=== PATIENT | male | born 2000 | race Caucasian/White ===

== ENCOUNTER → 2019-01-13 10:00 | Outpatient (CLI) | payer BC, SELFPAY | PROVIDERS: PCP Nurse Practitioner Family; Visit Provider Nurse Practitioner Family | DX: Z82.79 Family history of other congenital malformations, deformations and chromosomal abnormalities (principal) | CPT/HCPCS: 93306 ==

== ENCOUNTER 2020-08-11 11:07 | Day surgery (SDC) | payer BC, SELFPAY ==
[2020-08-11] VITALS (10 sets, daily range): BP systolic 145–162; BP diastolic 69–91; PULSE 68–98; RESP 16–20; TEMP 36.2–36.8; O2SAT 93–100; BMI 31.6
--- NOTE | 2020-08-11 11:29 | HMH.EDABDPAI ---
ED Disposition Clinical Impression: Acute appendicitis Qualifiers: Acute appendicitis type: unspecified acute appendicitis type Qualified Code(s): K35.80 - Unspecified acute appendicitis Disposition: Still a Patient Condition on Discharge: Undetermined Instructions: DI for Acute Abdomen Referrals: Yris Gordon APRN [Primary Care Provider] - - Critical Care Critical Care Time: No Attestation: On , the high probability of a clinically significant, sudden or life threatening deterioration of the following system(s) required my full and direct attention, intervention and personal management. The time I documented below is in addition to time spent performing reported procedures but includes the following listed in this critical care notation. Medical Decision Making - Medical Records Medical records reviewed: Yes: I reviewed the patient's medical records. - Ed Inquiry Pt receiving controlled substance: No Vital Signs: 08/11/20 11:08 Temperature 98.0 F Temperature Source Oral Pulse Rate [Left Radial] 98 H Respiratory Rate 19 Blood Pressure [Right Arm] 151/91 H Blood Pressure Mean [Right Arm] 111 Blood Pressure Source [Right Arm] Automatic Cuff Blood Pressure Position [Right Arm] Sitting 02 Sat by Pulse Oximetry 100 Oxygen Delivery Method Room Air - Lab Data Lab Results 08/11/20 11:28: Urine Color Yellow, Urine Appearance Clear, Urine pH 6.0, Ur Specific [place] 1.015, Urine Protein Negative, Urine Glucose (UA) Negative, Urine Ketones Negative, Urine Blood Negative, Urine Nitrate Negative, Urine Bilirubin Negative, Urine Urobilinogen 0.2, Ur Leukocyte Esterase Negative, Urine RBC Occasional, Urine WBC None, Ur Squamous Epith Cells Occasional, Urine Bacteria None 08/11/20 11:28: WBC 12.1 H, RBC 6.29 H, Hgb 17.3, Hct 49.8, MCV 79.3 L, MCH 27.5, MCHC 34.7, RDW 13.9, Plt Count 331, MPV 7.4, Neut % (Auto) 69.0, Lymph % (Auto) 22.2, [place] % (Auto) 6.2, Eos % (Auto) 2.2, Baso % (Auto) 0.5, Neut # (Auto) 8.4 H, Lymph # (Auto) 2.7, [place] # (Auto) 0.8, Eos # (Auto) 0.3, Baso # (Auto) 0.1 08/11/20 11:28: Sodium 141, Potassium 4.1, Chloride 103, Carbon Dioxide 27, Anion Gap 15.1 H, BUN 14, Creatinine 0.80, Estimated Creat Clear 225, Estimated GFR 122, Est GFR ( Amer) 148, Glucose 113 H, Calcium 10.1, Total Bilirubin 0.6, AST 43, ALT 52, Alkaline Phosphatase 101, Total Protein 9.1 H, Albumin 5.2 H, Globulin 3.9 H, Albumin/Globulin Ratio 1.3, Amylase 66, Lipase 67 Result diagrams: 08/11/20 11:28 08/11/20 11:28 Orders (Tests/Meds): ED MEDICATIONS Discontinued Medications Generic Name Dose Route Start Last Admin Trade Name Freq PRN Reason Stop Dose Admin Sodium Chloride 1,000 mls @ 999 mls/hr 08/11/20 11:30 08/11/20 11:45 Sod Chlor 0.9% 1000ml Bag IV 08/11/20 12:30 999 mls/hr .Q1H1M RACHEL Administration Iopamidol 75 ml 08/11/20 12:19 08/11/20 12:22 Iopamidol-370 (76%);100ml Bottle IV 08/11/20 12:20 75 ml ONCE ONE Administration Ketorolac Tromethamine 15 mg 08/11/20 11:22 08/11/20 11:45 Ketorolac 30mg/Ml Vial IV 08/11/20 11:23 15 mg ONCE ONE Administration Morphine Sulfate 2 mg 08/11/20 13:22 08/11/20 13:30 Morphine 2mg/Ml Syringe IV 08/11/20 13:23 2 mg ONCE ONE Administration Ondansetron HCl 4 mg 08/11/20 11:22 08/11/20 11:45 Ondansetron 4mg/2ml Vial IV 08/11/20 11:23 4 mg ONCE ONE Administration Sodium Chloride 10 ml 08/11/20 12:22 08/11/20 12:22 Sodium Chloride 0.9% 10ml Syr (Rad Only) IV 08/11/20 12:23 10 ml ONCE ONE Administration ORDERS Category Date Time Status Covid-19 IgG/IgM ([facility]) Stat Lab 08/11/20 13:46 Ordered - CT Data CT Scan: Abdomen Time Received: 12:[address] Reviewed: Yes: I have reviewed the patient's CT results, I have viewed the radiologist's interpretation Preliminary Findings: Abnormal Findings Narrative: 8 mm appendix that is distended with no periappendiceal inflammation or fat stranding. Medi
[2020-08-11 11:36] LABS: Microscopic, Urine URINE MICROSCOPIC (MICROSCOPIC)
[2020-08-11 11:38] LABS: Appearance,Urine CLEAR (Clear); Bilirubin,Urine Negative (Negative); Blood, Urine Negative (Negative); Color,Urine YELLOW (Yellow); Glucose,Urine (UA) Negative (Negative); Ketones,Urine Negative (Negative); Leukocyte Esterase,Urine Negative (Negative); Nitrate,Urine Negative (Negative); Protein,Urine Negative (Negative); Specific Gravity, Urine 1.015 (1.005-1.030); Urobilinogen,Urine 0.2 EU/dl (0.2)
[2020-08-11 11:40] LABS: Basophils # 0.1 K/mm3 (0-0.2); Basophils % 0.5 % (0.1-2.0); Eosinophils # 0.3 K/mm3 (0.0-0.4); Eosinophils % 2.2 % (0.1-12.0); Hematocrit 49.8 % (42.0-52.0); Hemoglobin 17.3 g/dL (14.1-18.0); Lymphocytes # 2.7 K/mm3 (0.7-4.5); Lymphocytes % 22.2 % (10-50); Mean Corpuscular HGB Conc 34.7 g/dL (31.8-35.4); Mean Corpuscular Hemoglobin 27.5 pg (27.0-31.2); Mean Corpuscular Volume 79.3 fl (80-94); Mean Platelet Volume 7.4 fl (7.4-10.4); Monocytes # 0.8 K/mm3 (0.1-1.0); Monocytes % 6.2 % (1.7-9.3); Neutrophils # 8.4 K/mm3 (1.8-7.8); Platelet Count 331 K/mm3 (142-424); Red Blood Count 6.29 M/mm3 (4.60-6.20); Red Cell Distribution Width 13.9 % (11.5-17.5); White Blood Count 12.1 K/mm3 (4.8-10.8)
--- NOTE | 2020-08-11 11:42 | CT_ITS ---
PROCEDURE: CT ABDOMEN PELVIS W CON CLINICAL INDICATION: RUQ and LUQ abdominal pain. COMPARISON: No exams were available for comparison TECHNIQUE: IV Contrast: 75ML Isovue 370 Oral Contrast None Axial images obtained with sagittal and coronal reformats. All CT scans at the facility use one or more dose reduction, viz: automated exposure control, ma/kV adjustment per patient size (including targeted exams where dose is matched to indication, i.e. head), or iterative reconstruction technique. FINDINGS: LOWER THORAX: No acute finding ABDOMEN & PELVIS: A 4 mm hypodensity is present in the hepatic dome image 14 series 3 nonspecific too small to categorize. The liver is otherwise unremarkable. The gallbladder has an unremarkable CT appearance. The spleen, adrenal glands, and pancreas have an unremarkable appearance. No renal or ureteral calculi. There is minimal prominence of the right ureter. The right kidney has a slightly edematous appearance. Recently passed stone or urinary tract infection is considered. No definite ureteral calculi are apparent. The bowel gas pattern is nonspecific. No intestinal obstruction or free air. The appendix is slightly prominent measuring 8 mm in diameter. No stranding of the periappendiceal fat. No periappendiceal fluid collection. No pelvic mass or abnormal fluid collection. There are scattered small sclerotic foci in the left femoral head and neck which may be due to bone islands. IMPRESSION: 1. Minimal prominence of the right renal collecting system with minimal edematous appearance of the right kidney. Urinary tract infection or recently passed stone is a consideration. No definite ureteral calculi are apparent. 2. The appendix is somewhat prominent measuring 8 mm without obvious stranding of the periappendiceal fat or periappendiceal fluid collection. This is of questionable clinical significance. Consider follow-up with oral contrast if symptoms warrant. Dictated by: Jose L Rodriguez MD 08/11/2020 12:42 Jose L Rodriguez MD in [place] 08/11/2020 12:42
[2020-08-11 11:44] LABS: Chloride 103 mmol/L (98-107); RBC,Urine Occasional #/hpf (0-3); Sodium 141 mmol/L (136-145); Squamous Epithelial Cell,Urine Occasional #/hpf (0-5)
[2020-08-11 11:45] LABS: Potassium 4.1 mmoL/L (3.5-5.1)
[2020-08-11 11:46] LABS: Amylase 66 U/L (30-110); Blood Urea Nitrogen 14 mg/dl (9-20); Creatinine Clearance Estimated 225 mL/min (50-200); Estimated Glomerular Filt Rate 122 ml/min (>60); GFR (African American) 148 ML/MIN (>60)
[2020-08-11 11:47] LABS: Alanine Aminotransferase 52 U/L (12-78); Albumin Level 5.2 g/dl (3.5-5.0); Albumin/Globulin Ratio 1.3 (1.1-1.8); Alkaline Phosphatase 101 U/L (38-126); Anion Gap 15.1 mEq/L (5-15); Aspartate Amino Transferase 43 U/L (17-59); Bilirubin,Total 0.6 mg/dl (0.2-1.3); Calcium 10.1 mg/dl (8.4-10.2); Carbon Dioxide 27 mmol/L (22.0-30.0); Globulin 3.9 g/dL (1.3-3.2); Glucose 113 mg/dl (74-100); Lipase 67 U/L (23-300); Total Protein,Serum 9.1 g/dl (6.3-8.2)
--- NOTE | 2020-08-11 13:17 | PC.NURSE ---
Dr Martin speaking with Dr Cruz.
--- NOTE | 2020-08-11 13:47 | PC.NURSE ---
pt to surgery
--- NOTE | 2020-08-11 13:51 | PC.NURSE ---
Pt placed in w, ERIC stack, surgery staff received preop checklist given. Staff states that is all they need at this time. IF pt is to be admitted, will do that after the surgery
[2020-08-11 14:18] LABS: Coronavirus 19 IgG Antibody Negative (Negative); Coronavirus 19 IgM Antibody Negative (Negative)
--- NOTE | 2020-08-11 17:11 | HMH.OPNOTE ---
Date of procedure: 08/11/20 Pre-op Diagnosis:: Appendicitis Post-op Diagnosis:: Same Procedure performed:: Laparoscopic appendectomy Surgeon:: Alexis Cruz MD FIELD SUPPORT REPRESENTATIVE:: Fausto Morocho Anesthesia: GETKelly Estimated blood loss (mL): 10 Operative findings:: Inflamed/enlarged appendix with minimal suppurative changes distally Operative note:: After informed consent was obtained the patient was taken to the operating room and placed in the supine position. General anesthesia was induced and his abdomen was prepped and draped in a sterile fashion. After infiltration with local anesthetic a supraumbilical incision was made. A Veress needle was placed in position. The abdomen was insufflated. A 12 mm optical trocar was placed in position. Under direct visualization a 5 mm trocar was placed in the suprapubic position and an additional 5 mm trochars placed in the left lower quadrant. Evaluation in the right lower quadrant revealed no obvious abscess cavities or severe generalized inflammatory changes. The appendix was carefully elevated. The appendix was very inflamed and enlarged. The distal appendix had focal suppurative changes. No sign of perforation noted. The mesoappendix was taken down with harmonic arelis. An Endopath 45 stapling device was then used to transect the appendix at its base. The appendix was placed in a retrieval bag and removed through the supraumbilical trocar site. The right lower quadrant was thoroughly irrigated. No active bleeding or sign of injury was noted. The staple margin appeared to be intact at the stump. Pneumoperitoneum was released. Fascia at the supraumbilical trocar site was reapproximated with 0 Ethibond. All wounds were irrigated and skin was reapproximated with 4-0 Monocryl. Sterile dressings were applied and the patient was transferred to recovery in stable condition after extubation. Condition: stable Disposition: PACU Specimens:: Appendix Complications:: No immediate
--- NOTE | 2020-08-11 17:24 | HMH.ANESCL ---
[facility] Anesthesia Checklist - Patient Identification Patient Identification: Arm Band, Verbal (Name & ) - Structural Data Admitted From: Emergency Dept Planned Operative Procedure/s: lap appy Consent for Planned Operative Procedure(s) Verified: Yes Verified Documents: History and Physical - NPO Status Verified Time NPO: 05:00 - Chart Verification Results Verified: CBC, BMP - Additional verifications Patient : No Anesthesia Reactions: No Hx Blood Transfusions: No Blood Transfusion Reaction: No Cephalosporin Allergy: No Previous Colonoscopy: No - Cardiovascular Assessment Heart Sounds: S1 & S2 Pulse Strength: Baseline Pulse Rhythm: Regular Peripheral Edema: No - Airway Assessment C-Spine Mobility Assessed: Yes TMJ Mobility Assessed: Yes Dentition: Good Dentition - Neurological Assessment Level of Consciousness: Awake, Alert, Appropriate Hx Seizures: No Numbness or tingling in extremities: No - Anesthesia Plan Anesthesia Risk discussed: Yes Anesthesia Plan: Verified ASA Class: I Anesthesia Type: General [facility] History I have reviewed the patient's past medical history: Yes Medical History: Reports:: Asthma *Have you ever received a pneumonia vaccine?: No *Have you received a flu vaccine this season?: No Anesthesia experience/problems:: none Other Surgeries: Yes: No Previous Surgery Amputation: No Fractures: Yes - *Social History Smoking Status: Never smoker Alcohol Intake: never Substance Use Type: denies use *Occupational Status:: employed Housing: house Household Members: family *Travel in the last 8 weeks: None Family Hx:: Diabetes
--- NOTE | 2020-08-11 17:27 | HMH.ANESI ---
[facility] Anesthesia Record Part I Intake, IV Amount: 800 Estimated blood loss (mL): 10 Urine output (mL): 150 Blood Products used (#): none Blood Pressure: 155/87 SaO2: 93 Pulse Rate: 68 Respiratory Rate: 18 Temperature: 97.2 F Patient is:: Drowsy, Nasal O2, Stable Stable to PACU at:: 17:25
--- NOTE | 2020-08-11 17:33 | SUR.OPER ---
18 F/C PLACED INTRAOPERATIVE. Clear, Yellow urine noted. 150 cc noted at the end of procedure. f/c dc'd. urine specimen sent to lab.
[2020-08-11 17:49] LABS: Microscopic,Cath URINE MICROSCOPIC (MICROSCOPIC)
--- NOTE | 2020-08-11 18:35 | PC.NURSE ---
1755-report given to José Luis,RN at bedside, vss, family at bedside, pt stable
[2020-08-11 19:39] LABS: Appearance,Urine/Cath CLEAR (Clear); Bilirubin,Cath Negative (Negative); Blood, Urine/Cath Negative (Negative); Color,Urine/Cath YELLOW (Yellow); Glucose,Urine/Cath (UA) Negative (Negative); Ketones,Urine/Cath TRACE (Negative); Leukocyte Esterase,Cath Negative (Negative); Nitrate,Cath Negative (Negative); Protein,Urine/Cath Negative (Negative); Specific Gravity, Urine/Cath 1.025 (1.005-1.030); Urobilinogen,Cath 0.2 EU/dl (0.2)
[2020-08-11 20:16] LABS: Bacteria,Urine/Cath TRACE /lpf
--- NOTE | 2020-08-12 07:02 | P.PN_ITS ---
[facility] Anesthesia Record Part II Discharge Time: 17:35 Destination: Surgical Day Care (OP Surgery) PACU nurse assessment reviewed?: Yes Patient Condition:: Good Anesthesia Complications:: None Swallowing reflex intact?: Yes Cyanosis?: No Blood Pressure: 160/72 Pulse Rate: 84 Temperature: 97.6 F Mental Status: Alert & Oriented Pain level:: 4 Nausea and/or vomitting:: None Intake, IV Amount: 25
[2020-08-12 07:03] VITALS: BP 160/72; PULSE 84; TEMP 36.4
== END 2020-08-11 18:36 | disposition home or self-care (01) ==
LOC: ER 11:35 → SDC 13:49
PROVIDERS: Emergency Provider Student in an Organized Health Care Education/Training Program; PCP Nurse Practitioner Family; Visit Provider Surgery
PROC: 0DTJ4ZZ Resection of Appendix, Percutaneous Endoscopic Approach (ICD-10-PCS; CPT 44970; principal; 2020-08-11 14:15)
DX: K35.80 Unspecified acute appendicitis (principal); J45.909 Unspecified asthma, uncomplicated
CPT/HCPCS: 44970; 74177; 80053; 81001; 82150; 83690; 85025; 86328; 96365; 96374; 96375; 99284; J2405; J2710; Q9967

== ENCOUNTER → 2021-08-08 17:13 | Outpatient (CLI) | payer BC, SELFPAY | PROVIDERS: PCP Nurse Practitioner Family; Visit Provider Nurse Practitioner | DX: Z20.822 Contact with and (suspected) exposure to COVID-19 (principal); U07.1 COVID-19 | CPT/HCPCS: C9803; U0003; U0005 ==

== ENCOUNTER 2021-08-11 23:37 | Emergency (ER) | payer BC, SELFPAY ==
[2021-08-11 23:41] VITALS: BP 138/86; PULSE 122; RESP 18; TEMP 37.4; O2SAT 98; BMI 33.9
--- NOTE | 2021-08-11 23:58 | XR_ITS ---
PROCEDURE INFORMATION: Exam: XR Chest Exam date and time: 08/11/2021 11:58 PM Age: 21 years old Clinical indication: Shortness of breath and other: Dyspnea; Additional info: Dyspnea covid 19 TECHNIQUE: Imaging protocol: XR of the chest. Views: 1 view. COMPARISON: CT ABDOMEN PELVIS W CON 08/11/2020 12:12 PM FINDINGS: Lungs: Patchy airspace opacity in the right mid-lung/suprahilar region compatible with pneumonia. Pleural spaces: No pleural effusion. No pneumothorax. Heart/Mediastinum: Normal heart size. Bones/joints: Unremarkable. IMPRESSION: Pneumonia in the right mid -lung/suprahilar region.
--- NOTE | 2021-08-12 00:06 | HMH.EDGENADL ---
ED Disposition Clinical Impression: Pneumonia due to COVID-19 virus Pneumonia Qualifiers: Pneumonia type: due to unspecified organism Laterality: right Lung location: upper lobe of lung Qualified Code(s): J18.9 - Pneumonia, unspecified organism Disposition: Home, Self-Care Condition on Discharge: Good Instructions: Pneumonia-Adult Additional Instructions: Finish the entire course of antibiotics and return to the ER for any new or worsening symptoms. Continue to treat your fevers with Tylenol and ibuprofen and monitor your oxygen saturation if is persistently below 91% return to the emergency department for further evaluation. Prescriptions: Amoxicillin [Amoxicillin 875MG Tab] 875 mg PO Q12H #14 tab [facility] Azithromycin [Z-Piero 250mg Tab*] 250 mg PO UD DOSE PK #6 tab [facility] Referrals: Yris Gordon APRN [Primary Care Provider] - Time of Disposition: 02:10 - Critical Care Critical Care Time: No Attestation: On , the high probability of a clinically significant, sudden or life threatening deterioration of the following system(s) required my full and direct attention, intervention and personal management. The time I documented below is in addition to time spent performing reported procedures but includes the following listed in this critical care notation. Medical Decision Making - Medical Records Medical records reviewed: Yes: I reviewed the patient's medical records. - Ed Inquiry Pt receiving controlled substance: No Vital Signs: 08/11/21 23:41 08/12/21 00:30 Temperature 99.3 F Temperature Source Oral Pulse Rate 106 H Pulse Rate [Right] 122 H Respiratory Rate 18 Blood Pressure 130/82 Blood Pressure [Right Arm] 138/86 Blood Pressure Mean [Right Arm] 103 02 Sat by Pulse Oximetry 98 98 Oxygen Delivery Method Room Air - Lab Data Lab Results 08/12/21 00:11: WBC 4.2 L, RBC 5.82, Hgb 15.9, Hct 47.0, MCV 80.8, MCH 27.3, MCHC 33.9, RDW 13.9, Plt Count 149, MPV 8.1, Neut % (Auto) 76.9, Lymph % (Auto) 17.6, [place] % (Auto) 3.8, Eos % (Auto) 0.6, Baso % (Auto) 1.0, Neut # (Auto) 3.2, Lymph # (Auto) 0.7, [place] # (Auto) 0.2, Eos # (Auto) 0.0, Baso # (Auto) 0.0 08/12/21 00:11: Sodium 139, Potassium 3.8, Chloride 99, Carbon Dioxide 33 H, Anion Gap 10.8, BUN 6 L, Creatinine 0.80, Estimated Creat Clear 232, Estimated GFR 121, Est GFR ( Amer) 146, Glucose 107 H, Calcium 8.8, Total Bilirubin 0.3, AST 61 H, ALT 73, Alkaline Phosphatase 71, Total Protein 7.9, Albumin 4.7, Globulin 3.2, Albumin/Globulin Ratio 1.5 08/12/21 00:11: D-Dimer 0.68 H Result diagrams: 08/12/21 00:11 08/12/21 00:11 Orders (Tests/Meds): ED MEDICATIONS Generic Name Dose Route Start Last Admin Trade Name Freq PRN Reason Stop Dose Admin Sodium Chloride 1,000 mls @ 999 mls/hr 08/11/21 23:45 08/12/21 00:05 Sod Chlor 0.9% 1000ml Bag IV 08/12/21 00:45 999 mls/hr .Q1H1M RACHEL Administration Discontinued Medications Generic Name Dose Route Start Last Admin Trade Name Freq PRN Reason Stop Dose Admin Iopamidol 70 ml 08/12/21 01:28 08/12/21 01:29 Iopamidol-370 (76%);100ml Bottle IV 08/12/21 01:29 70 ml ONCE ONE Administration Sodium Chloride 40 ml 08/12/21 01:28 08/12/21 01:29 0.9 % Sodium Chloride 50 Ml Vial IV 08/12/21 01:29 40 ml ONCE ONE Administration Sodium Chloride 10 ml 08/12/21 01:28 08/12/21 01:29 Sodium Chloride 0.9% 10ml Syr (Rad Only) IV 08/12/21 01:29 10 ml ONCE ONE Administration - Radiology Data #1 Image(s): Chest Image Reviewed: Yes I reviewed the patient's radiology image, Yes I have reviewed radiologist's interpretation Preliminary Findings: Abnormal Right-sided pneumonia. No pneumothorax or other bony acute abnormality. - CT Data CT Scan: Chest Time Received: 01:[address] Reviewed: Yes: I have viewed the radiologist's interpretation Findings Guero
[2021-08-12 00:30] VITALS: BP 130/82; PULSE 106; O2SAT 98
[2021-08-12 00:39] LABS: Eosinophils % 0.6 % (0.1-12.0); Hemoglobin 15.9 g/dL (14.1-18.0); Lymphocytes # 0.7 K/mm3 (0.7-4.5); Lymphocytes % 17.6 % (10-50); Mean Corpuscular HGB Conc 33.9 g/dL (31.8-35.4); Mean Corpuscular Hemoglobin 27.3 pg (27.0-31.2); Mean Corpuscular Volume 80.8 fl (80-94); Mean Platelet Volume 8.1 fl (7.4-10.4); Monocytes # 0.2 K/mm3 (0.1-1.0); Monocytes % 3.8 % (1.7-9.3); Neutrophils # 3.2 K/mm3 (1.8-7.8); Neutrophils % 76.9 % (37.0-80.0); Platelet Count 149 K/mm3 (142-424); Red Blood Count 5.82 M/mm3 (4.60-6.20); Red Cell Distribution Width 13.9 % (11.5-17.5); White Blood Count 4.2 K/mm3 (4.8-10.8)
[2021-08-12 00:40] LABS: Chloride 99 mmol/L (98-107); Potassium 3.8 mmoL/L (3.5-5.1); Sodium 139 mmol/L (136-145)
[2021-08-12 00:42] LABS: Alanine Aminotransferase 73 U/L (12-78); Alkaline Phosphatase 71 U/L (38-126); Aspartate Amino Transferase 61 U/L (17-59); Bilirubin,Total 0.3 mg/dl (0.2-1.3); Blood Urea Nitrogen 6 mg/dl (9-20); Creatinine Clearance Estimated 232 mL/min (50-200); Estimated Glomerular Filt Rate 121 ml/min (>60); GFR (African American) 146 ML/MIN (>60)
[2021-08-12 00:43] LABS: Albumin Level 4.7 g/dl (3.5-5.0); Albumin/Globulin Ratio 1.5 (1.1-1.8); Anion Gap 10.8 mEq/L (5-15); Calcium 8.8 mg/dl (8.4-10.2); Carbon Dioxide 33 mmol/L (22.0-30.0); Globulin 3.2 g/dL (1.3-3.2); Glucose 107 mg/dl (74-100); Total Protein,Serum 7.9 g/dl (6.3-8.2)
[2021-08-12 00:48] LABS: D-Dimer 0.68 ug/mL (0.0-0.5)
[2021-08-12 01:00] VITALS: PULSE 107; O2SAT 99
--- NOTE | 2021-08-12 01:02 | CT_ITS ---
PROCEDURE INFORMATION: Exam: CTA Chest With Contrast Exam date and time: 08/12/2021 1:02 AM Age: 21 years old Clinical indication: Cough and shortness of breath and other: Covid 19 elevated d dimer; Additional info: Pre syncope/ covid/ elevated dimer TECHNIQUE: Imaging protocol: Computed tomographic angiography of the chest with contrast. 3D rendering (Not supervised by radiologist): MIP and/or 3D reconstructed images were created by the technologist. Radiation optimization: All CT scans at this facility use at least one of these dose optimization techniques: automated exposure control; mA and/or kV adjustment per patient size (includes targeted exams where dose is matched to clinical indication); or iterative reconstruction. Contrast material: ISOVUE 370; Contrast volume: 70 ml; Contrast route: INTRAVENOUS (IV); COMPARISON: CR XR CHEST PORTABLE 08/12/2021 12:05 AM FINDINGS: Pulmonary arteries: No large or central pulmonary emboli. There is mild heterogeneity of the subsegmental pulmonary arteries, probably artifactual, without convincing filling defect. Aorta: No thoracic aortic aneurysm or dissection. There is a congenitally aberrant, double arch branching pattern of the aorta. Lungs: There are numerous nodular airspace opacities throughout both lungs, compatible with multifocal pneumonia. There is confluent airspace consolidation in the anterior segment of the right upper lobe. Pleural spaces: Trace pleural effusions. No pneumothorax. Heart: Normal heart size. Trace pericardial fluid without significant effusion. Mediastinal space: There is residual or rebound thymic tissue noted. Lymph nodes: Prominent bilateral axillary lymph nodes measuring up to 1.4 cm in short axis, nonspecific and probably reactive in nature. Visualized upper abdomen: Hepatic steatosis. Partially imaged spleen measures greater than 15 cm in craniocaudal dimension, consistent with splenomegaly. Bones/joints: Unremarkable. No acute fracture. Soft tissues: Bilateral gynecomastia. IMPRESSION: 1. No evidence of pulmonary embolus. 2. Multifocal pneumonia, compatible with provided history of COVID-19 infection. Confluent airspace consolidation in the anterior segment right upper lobe. 3. Congenital double aortic arch. 4. Hepatic steatosis. Mild splenomegaly.
[2021-08-12 02:17] VITALS: BP 125/78; PULSE 92; RESP 20; TEMP 37.2; O2SAT 96
== END 2021-08-12 02:20 | disposition home or self-care (01) ==
PROVIDERS: Emergency Provider Student in an Organized Health Care Education/Training Program; PCP Nurse Practitioner Family
DX: J18.9 Pneumonia, unspecified organism (principal); J12.82 Pneumonia due to coronavirus disease 2019
CPT/HCPCS: 71045; 71275; 80053; 85025; 85378; 96365; 99282; Q9967

== ENCOUNTER 2021-08-13 21:26 | Emergency (ER) | payer BC, SELFPAY ==
[2021-08-13 21:28] VITALS: BP 124/79; PULSE 124; RESP 24; TEMP 37.7; O2SAT 95; BMI 33.9
[2021-08-13 22:00] VITALS: BP 123/77; PULSE 103; RESP 31; O2SAT 93
--- NOTE | 2021-08-13 22:17 | XR_ITS ---
PROCEDURE INFORMATION: Exam: XR Chest Exam date and time: 08/13/2021 10:17 PM Age: 21 years old Clinical indication: Shortness of breath; Additional info: SOA TECHNIQUE: Imaging protocol: XR of the chest. Views: 1 view. COMPARISON: CR XR CHEST PORTABLE 08/12/2021 12:05 AM FINDINGS: Lungs: Right upper lobe pneumonia, improving from yesterday. Pleural spaces: Unremarkable. No pleural effusion. No pneumothorax. Heart/Mediastinum: Unremarkable. No cardiomegaly. Bones/joints: Unremarkable. IMPRESSION: Right upper lobe pneumonia, improving from yesterday.
--- NOTE | 2021-08-13 22:18 | ECG_ITS ---
APPROVED REPORT Exam: Resting ECG HR:102 bpm ECG Measurements Heart Rate 102 AXES IA 154 P 33 QRSd 98 QRS 17 QT 344 T 19 QTc 448 Conclusion Sinus tachycardia Otherwise normal ECG Electronically signed by : Fausto Chaves MD 08/14/2021 20:15:47
[2021-08-13 22:23] LABS: Basophils % 0.4 % (0.1-2.0); Eosinophils % 0.2 % (0.1-12.0); Hematocrit 45.2 % (42.0-52.0); Hemoglobin 15.8 g/dL (14.1-18.0); Lymphocytes # 0.9 K/mm3 (0.7-4.5); Lymphocytes % 15.8 % (10-50); Mean Corpuscular Hemoglobin 27.5 pg (27.0-31.2); Mean Corpuscular Volume 78.6 fl (80-94); Mean Platelet Volume 8.4 fl (7.4-10.4); Monocytes # 0.2 K/mm3 (0.1-1.0); Monocytes % 2.9 % (1.7-9.3); Neutrophils # 4.6 K/mm3 (1.8-7.8); Neutrophils % 80.7 % (37.0-80.0); Platelet Count 176 K/mm3 (142-424); Red Blood Count 5.75 M/mm3 (4.60-6.20); Red Cell Distribution Width 13.7 % (11.5-17.5); White Blood Count 5.7 K/mm3 (4.8-10.8)
[2021-08-13 22:33] LABS: Alanine Aminotransferase 74 U/L (12-78); Albumin Level 4.4 g/dl (3.5-5.0); Albumin/Globulin Ratio 1.3 (1.1-1.8); Alkaline Phosphatase 61 U/L (38-126); Anion Gap 12.8 mEq/L (5-15); Aspartate Amino Transferase 85 U/L (17-59); Bilirubin,Total 0.5 mg/dl (0.2-1.3); Blood Urea Nitrogen 3 mg/dl (9-20); Calcium 9.5 mg/dl (8.4-10.2); Carbon Dioxide 29 mmol/L (22.0-30.0); Chloride 96 mmol/L (98-107); Creatinine Clearance Estimated 310 mL/min (50-200); Estimated Glomerular Filt Rate 168 ml/min (>60); GFR (African American) 204 ML/MIN (>60); Globulin 3.4 g/dL (1.3-3.2); Glucose 113 mg/dl (74-100); Potassium 3.8 mmoL/L (3.5-5.1); Sodium 134 mmol/L (136-145); Total Protein,Serum 7.8 g/dl (6.3-8.2)
[2021-08-13 22:38] LABS: D-Dimer 0.61 ug/mL (0.0-0.5)
[2021-08-13 22:51] LABS: Troponin I < 0.01 ng/ml (0.00-0.034)
[2021-08-14 01:43] LABS: Troponin I < 0.01 ng/ml (0.00-0.034)
[2021-08-14 02:14] VITALS: BP 127/84; PULSE 103; RESP 16; TEMP 36.6; O2SAT 95
--- NOTE | 2021-08-14 03:41 | HMH.EDGENADL ---
ED Disposition Clinical Impression: COVID-19 Pneumonia Qualifiers: Pneumonia type: due to unspecified organism Laterality: unspecified laterality Lung location: unspecified part of lung Qualified Code(s): J18.9 - Pneumonia, unspecified organism Disposition: Home, Self-Care Condition on Discharge: Good Instructions: DI for COVID-19 (Suspected or Confirmed ) Referrals: Yris Gordon APRN [Primary Care Provider] - - Critical Care Critical Care Time: No Attestation: On 08/13/21, the high probability of a clinically significant, sudden or life threatening deterioration of the following system(s) required my full and direct attention, intervention and personal management. The time I documented below is in addition to time spent performing reported procedures but includes the following listed in this critical care notation. Medical Decision Making - Medical Records Medical records reviewed: Yes: I reviewed the patient's medical records. - Ed Inquiry Pt receiving controlled substance: No Vital Signs: 08/13/21 21:28 08/13/21 22:00 08/14/21 02:14 Temperature 99.9 F H 97.9 F Temperature Source Oral Pulse Rate 103 H 103 H Pulse Rate [Apical] 124 H Respiratory Rate 24 31 H 16 Blood Pressure 123/77 127/84 Blood Pressure [Right Arm] 124/79 Blood Pressure Mean [Right Arm] 94 Blood Pressure Source [Right Arm] Automatic Cuff Blood Pressure Position [Right Arm] Sitting 02 Sat by Pulse Oximetry 95 93 L Oxygen Delivery Method Room Air Room Air Room Air - Lab Data Lab results reviewed: Yes: I reviewed the patient's lab results. Lab Results 08/13/21 21:35: WBC 5.7 D, RBC 5.75, Hgb 15.8, Hct 45.2, MCV 78.6 L, MCH 27.5, MCHC 35.0, RDW 13.7, Plt Count 176, MPV 8.4, Neut % (Auto) 80.7 H, Lymph % (Auto) 15.8, [place] % (Auto) 2.9, Eos % (Auto) 0.2, Baso % (Auto) 0.4, Neut # (Auto) 4.6, Lymph # (Auto) 0.9, [place] # (Auto) 0.2, Eos # (Auto) 0.0, Baso # (Auto) 0.0 08/13/21 21:35: Sodium 134 L, Potassium 3.8, Chloride 96 L, Carbon Dioxide 29, Anion Gap 12.8, BUN 3 L D, Creatinine 0.60 L D, Estimated Creat Clear 310 H, Estimated GFR 168, Est GFR ( Amer) 204 D, Glucose 113 H, Calcium 9.5, Total Bilirubin 0.5, AST 85 H D, ALT 74, Alkaline Phosphatase 61, Troponin I < 0.01, Total Protein 7.8, Albumin 4.4, Globulin 3.4 H, Albumin/Globulin Ratio 1.3 08/13/21 21:35: D-Dimer 0.61 H 08/14/21 01:16: Troponin I < 0.01 Result diagrams: 08/13/21 21:35 08/13/21 21:35 Orders (Tests/Meds): ED MEDICATIONS Discontinued Medications Generic Name Dose Route Start Last Admin Trade Name Freq PRN Reason Stop Dose Admin Belladonna Alkaloids 60 ml 08/13/21 22:18 08/13/21 22:25 Gi Cocktail 60ml Udc PO 08/13/21 22:19 60 ml ONCE ONE Administration Lactated Ringer's 500 mls @ 999 mls/hr 08/13/21 22:30 08/13/21 22:26 Lactated Ringer's 1000 Ml Bag IV 08/13/21 23:00 999 mls/hr .Q31M RACHEL Administration Ketorolac Tromethamine 15 mg 08/13/21 22:18 08/13/21 22:25 Ketorolac 30mg/Ml Vial IV 08/13/21 22:19 15 mg ONCE ONE Administration ORDERS Category Date Time Status ECG Request by /Jacki Stat Y 08/13/21 22:18 Stop Req - Radiology Data #1 Image Reviewed: Yes I reviewed the patient's radiology results, Yes I reviewed the patient's radiology image CXR: FINDINGS: Lungs: Right upper lobe pneumonia, improving from yesterday. Pleural spaces: Unremarkable. No pleural effusion. No pneumothorax. Heart/Mediastinum: Unremarkable. No cardiomegaly. Bones/joints: Unremarkable. IMPRESSION: Right upper lobe pneumonia, improving from yesterday. Medical Decision Narrative: Patient is a 21yo Covid positive male presenting with worsening COVID-19 symptoms including dyspnea, cough and nausea with vomiting. Differential diagnosis includes, but is not limited to, myocarditis, pericarditis, COVID-19 pneumonia, COVID-19 syndrome, pulmonary embolus. On initial evaluation, casimiro
== END 2021-08-14 02:34 | disposition home or self-care (01) ==
PROVIDERS: Emergency Provider Emergency Medicine; PCP Nurse Practitioner Family
DX: J18.9 Pneumonia, unspecified organism (principal)
CPT/HCPCS: 71045; 80053; 84484; 85025; 85378; 93005; 96365; 96375; 99283

== ENCOUNTER → 2021-08-22 09:56 | Outpatient (CLI) | payer BC, SELFPAY ==
--- NOTE | 2021-08-22 10:02 | XR_ITS ---
PROCEDURE: XR CHEST 2V CLINICAL HISTORY: PNEUMONIA DUE TO CORONAVIRUS DISEASE(TESTED POSITIVE ON ) COMPARISON: CT CT ANGIO CHEST PE PROTOCOL from 08/12/2021 CR XR CHEST PORTABLE from 08/12/2021 CR XR CHEST PORTABLE from 08/13/2021 FINDINGS: The cardiomediastinal silhouette and pulmonary vascularity are within normal limits. Previously noted right upper lobe pneumonia has shown improvement. No new areas of consolidation. Lungs are clear. No effusions No acute bony abnormalities. IMPRESSION: Improved right upper lobe pneumonia Dictated by: Jose L Rodriguez MD 08/22/2021 15:39 Jose L Rodriguez MD in [place] 08/22/2021 15:39
== END ==
PROVIDERS: PCP Nurse Practitioner Family; Visit Provider Nurse Practitioner Family
DX: J12.82 Pneumonia due to coronavirus disease 2019 (principal)
CPT/HCPCS: 71046

== ENCOUNTER → 2021-08-28 14:59 | Outpatient (CLI) | payer BC, SELFPAY ==
--- NOTE | 2021-08-28 15:02 | CA_ITS ---
APPROVED REPORT EXAM: Comprehensive 2D, Doppler, and color-flow Echocardiogram Loss Prevention Research Engineer: Yovana Renteria, RCS, RVS Ht: 6 ft 0 in Wt: 262lbs BSA: 2.39 BP: 137/94 mmHg Indications: Double aortic arch, s/p COVID 08/06/21, abn EKG 2D Dimensions Aortic Root 3.05 cm LA Volume 24.60 mL Left Atrium 2.51 cm LA Volume Index 10.30 mL/m2 (M/F) 16-34 LVOT 2.29 cm (M/F) 1.5-2.5 M-Mode Dimensions RVDd 2.85 cm (0.9-2.6) LA Diam 3.05 cm (1.9-4.0) LVDd 5.55 cm (3.5-5.7) Ao Diam 3.51 cm (2.0-3.7) LVDs 3.43 cm (3.5-5.7) IVSd 1.14 cm (0.6-1.1) PWd 1.10 cm (0.6-1.1) EF (Teich) 65.10% EPSs 0.50 cm FS 36.00% EDV (Teich) 138.90 mL ESV (Teich) 48.50 mL LV Diastology E Decel Time 203.00 (160-240 msec) E/A Ratio 1.61 MED E' 11.80 (< 7 cm/sec) MED A' 10.00 cm/s E'/MED E' Ratio 7.42 (>14) LAT E' 11.30 (<10 cm/sec) LAT A' 9.60 cm/s E/LAT E' Ratio 7.75 (>14) Aortic Valve LVOT Max 110.00 (70-110 cm/s) LVOT VTI 19.13 cm AoV Peak Fabio. 150.00 (50-130 cm/s) AO Peak GR. 9.00 mmHg AO Mean GR. 4.50 (<5 mmHg) AO VTI 24.03 (18-25 cm) BOB (VTI) 3.28 (2.5-4.5 cm2) Mitral Valve MV A Velocity 54.00 (40-130 cm/s) E/A Ratio 1.61 MV Decel. Time 203.00 (160-240 ms) Pulmonary Valve PV Peak Velocity 125.00 (50-150 cm/s) WI End VMAX 162.00 cm/s Tricuspid Valve TR P. Velocity 192.00 cm/s RAP Estimate 10.00 mmHg RVSP 24.80 mmHg Left Ventricle Left atrium is normal size, left ventricle is normal size, visually estimated ejection fraction 55% with no regional wall motion abnormality, diastolic parameters are within normal range. Right Ventricle Right atrium and right ventricle are normal size and contractility. Aortic Valve Aortic valve is minimally thickened and fibrosed. There is no aortic stenosis or aortic insufficiency. Mitral Valve Mitral valve grossly normal, there is trace mitral regurgitation. Tricuspid Valve Tricuspid grossly normal, there is trace tricuspid regurgitation, tricuspid regurgitation jet velocity is inadequate for calculation of the right ventricular systolic pressure. Pulmonic Valve Pulmonic valve is poorly visualized. Great Vessels Aortic root is normal size. Inferior vena cava is normal size with normal inspiratory collapse. Pericardium No significant pericardial effusion noted. Conclusion 1. Normal left ventricular size, preserved left ventricular systolic function, visually estimated ejection fraction 55% with no regional wall motion abnormality, diastolic parameters are within normal range. 2. Trace mitral and tricuspid regurgitation. 3. No significant pericardial effusion noted. 4. Inferior vena cava is normal size with normal inspiratory collapse. Electronically signed by : Ba Charles MD 08/28/2021 20:22:27
== END ==
LOC: RT 15:02
PROVIDERS: PCP Nurse Practitioner Family; Visit Provider Physician Assistant
DX: Q25.45 Double aortic arch (principal); R00.0 Tachycardia, unspecified; R94.31 Abnormal electrocardiogram [ECG] [EKG]
CPT/HCPCS: 93306

== ENCOUNTER → 2021-09-25 07:52 | Outpatient (CLI) | payer BC, SELFPAY ==
--- NOTE | 2021-09-25 07:52 | CT_ITS ---
PROCEDURE INFORMATION: Exam: CTA Chest With Contrast Exam date and time: 09/25/2021 7:52 AM Age: 21 years old Clinical indication: Condition or disease; Other: Evaluate double aortic arch; Additional info: To look at the aortic arch TECHNIQUE: Imaging protocol: Computed tomographic angiography of the chest with contrast. 3D rendering (Not supervised by radiologist): MIP and/or 3D reconstructed images were created by the technologist. Radiation optimization: All CT scans at this facility use at least one of these dose optimization techniques: automated exposure control; mA and/or kV adjustment per patient size (includes targeted exams where dose is matched to clinical indication); or iterative reconstruction. Contrast material: ISOVUE 370; Contrast volume: 75 ml; Contrast route: INTRAVENOUS (IV); COMPARISON: CT ANGIO CHEST PE PROTOCOL 08/12/2021 1:17 AM FINDINGS: Pulmonary arteries: The contrast bolus is spread out on both the right and left sides of the heart. There is suboptimal opacification of the pulmonary arteries. The main pulmonary arteries are without filling defects or other evidence of pulmonary embolus. Emboli cannot be excluded in the segmental arteries. Aorta: Again noted is the vascular ring. No aortic aneurysm or dissection. Lungs: Unremarkable. No consolidation. No masses. Pleural spaces: Unremarkable. No pneumothorax. No pleural effusion. Heart: Unremarkable. No cardiomegaly. No pericardial effusion. Lymph nodes: Unremarkable. No enlarged lymph nodes. Bones/joints: Unremarkable. No acute fracture. Soft tissues: Unremarkable. IMPRESSION: 1. Suboptimal exam of the pulmonary arteries with no obvious emboli. 2. No other acute changes in the chest. 3. Vascular ring.
== END ==
PROVIDERS: PCP Nurse Practitioner Family; Visit Provider Physician Assistant
DX: Q25.45 Double aortic arch (principal); R00.0 Tachycardia, unspecified; R94.31 Abnormal electrocardiogram [ECG] [EKG]
CPT/HCPCS: 71275; Q9967

== ENCOUNTER → 2021-11-17 11:43 | Outpatient (CLI) | payer BC, SELFPAY ==
[2021-11-17 12:32] LABS: Basophils # 0.1 K/mm3 (0-0.2); Basophils % 0.8 % (0.1-2.0); Eosinophils # 0.1 K/mm3 (0.0-0.4); Eosinophils % 1.5 % (0.1-12.0); Hematocrit 46.5 % (42.0-52.0); Hemoglobin 15.7 g/dL (14.1-18.0); Lymphocytes % 27.3 % (10-50); Mean Corpuscular HGB Conc 33.7 g/dL (31.8-35.4); Mean Corpuscular Hemoglobin 27.3 pg (27.0-31.2); Mean Corpuscular Volume 80.8 fl (80-94); Mean Platelet Volume 7.4 fl (7.4-10.4); Monocytes # 0.4 K/mm3 (0.1-1.0); Monocytes % 5.1 % (1.7-9.3); Neutrophils # 4.8 K/mm3 (1.8-7.8); Neutrophils % 65.3 % (37.0-80.0); Platelet Count 299 K/mm3 (142-424); Red Blood Count 5.76 M/mm3 (4.60-6.20); Red Cell Distribution Width 13.6 % (11.5-17.5); White Blood Count 7.4 K/mm3 (4.8-10.8)
[2021-11-17 12:54] LABS: D-Dimer 0.34 ug/mL (0.0-0.5)
[2021-11-23 04:53] LABS: D001-IgE D pteronyssinus <0.10 kU/L (Class 0); D002-IgE D farinae <0.10 kU/L (Class 0); E001-IgE Cat Dander <0.10 kU/L (Class 0); E005-IgE Dog Dander <0.10 kU/L (Class 0); E072-IgE Mouse Urine <0.10 kU/L (Class 0); G002-IgE Bermuda Grass <0.10 kU/L (Class 0); G006-IgE Timothy Grass <0.10 kU/L (Class 0); I006-IgE Cockroach, German 0.32 kU/L (Class I); Immunoglobulin E, Total 45 IU/mL (6-495); M001-IgE Penicillium chrysogen <0.10 kU/L (Class 0); M002-IgE Cladosporium herbarum <0.10 kU/L (Class 0); M003-IgE Aspergillus fumigatus <0.10 kU/L (Class 0); M006-IgE Alternaria alternata <0.10 kU/L (Class 0); T001-IgE Maple/Box Elder <0.10 kU/L (Class 0); T003-IgE Common Silver Birch <0.10 kU/L (Class 0); T006-IgE Cedar, Mountain <0.10 kU/L (Class 0); T007-IgE Oak, White <0.10 kU/L (Class 0); T008-IgE Elm, American <0.10 kU/L (Class 0); T010-IgE Walnut <0.10 kU/L (Class 0); T011-IgE Maple Leaf Sycamore <0.10 kU/L (Class 0); T014-IgE Cottonwood <0.10 kU/L (Class 0); T015-IgE Ash, White <0.10 kU/L (Class 0); T022-IgE Pecan, Hickory <0.10 kU/L (Class 0); T070-IgE White Mulberry <0.10 kU/L (Class 0); W001-IgE Ragweed, Short <0.10 kU/L (Class 0); W011-IgE Thistle, Russian <0.10 kU/L (Class 0); W014-IgE Pigweed, Common <0.10 kU/L (Class 0); W018-IgE Sheep Sorrel <0.10 kU/L (Class 0)
== END ==
PROVIDERS: PCP Nurse Practitioner Family; Visit Provider Internal Medicine Pulmonary Disease
DX: J45.909 Unspecified asthma, uncomplicated (principal)
CPT/HCPCS: 36415; 82785; 85025; 85378; 86003

== ENCOUNTER 2024-06-12 14:47 | Outpatient (CLI) | payer BC, SELFPAY ==
[2024-06-15 22:11] LABS: Neisseria gonorrhoeae, NAA Negative (Negative)
== END 2024-06-12 23:59 | disposition home or self-care (01) ==
LOC: LAB.DROPOF 06-15 12:21
PROVIDERS: PCP Student in an Organized Health Care Education/Training Program; Visit Provider Student in an Organized Health Care Education/Training Program
DX: R30.0 Dysuria (principal); R35.0 Frequency of micturition
CPT/HCPCS: 87086; 87491; 87591

== ENCOUNTER 2025-06-28 17:45 | Outpatient (CLI) | payer BC, SELFPAY ==
--- OUTSIDE RECORDS SUMMARY | 2025-06-29 09:55 | XMS_ITS | Clinical Summary ---
Author Organization [facility] Address [address] [place] [id number] Phone [email or web address] Care Team Providers Care Suction Worker Name Role Phone Yris Gordon Primary Care Provider [phone] Allergies No known active allergies Medications No known medications Active Problems Problem Noted Date Diagnosed Date Encounter for fitness for duty examination 08/27 Social History Tobacco Use Types Packs/Day Years Used Date Smoking Tobacco: Never Smokeless Tobacco: Never Tobacco Cessation:Counseling Given: Not Answered Intimate Partner Violence Answer Date R ecorded Insults You Not on file 01/13/2021 Threatens You Not on file 01/13/2021 Screams at You Not on file 01/13/2021 Physically Hurt Not on file 01/13/2021 Intimate Partner Violence Score Not on file 01/13/2021 Depression Answer Date Recorded PHQ Total Score 0 02/26/2023 Stress Answer Date Recorded Stress in your Life Not on file 08/05/2024 Dealing with Stress 3 08/05/2024 Sex and Gender Information Value Date Recorded Sex Assigned at Male 12/26/2021 4:49 AM CDT Legal Sex Male 11:24 AM CDT Gender Identity Male 12/26/2021 4:49 AM CDT Sexual Orientation Not on file Last Filed Vital Signs Vital Sign Reading Time Taken Comments Blood Pressure 125/84 03/18/2025 3:20 PM EDT Pulse 84 03/18/2025 3:20 PM EDT Temperature 36.3 C (97.4 F) 10/02/2024 5:47 PM EST Respiratory Rate 16 03/18/2025 3:20 PM EDT Oxygen Saturation 98% 03/18/2025 3:20 PM EDT Inhaled Oxygen Concentration - - Weight 119 kg (262 lb 12.8 oz) 02/25/2024 3:54 P M EDT Height 182.9 cm (6') 09/02/2023 10:24 PM EST Body Mass Index 35.64 09/02/2023 10:24 PM EST Plan of Treatment Health Maintenance Due Date Last Done Comments Dental Cleaning/Exam 1999 HIV Screening 1999 Hepatitis C Screening 1999 HPV Immunization (1 - Male 3-dose series) 2014 Hep B Infection Screening - Triple Screen 2017 Pneumococcal Immunization (1 of 2 - PCV) 2018 Tetanus Diphtheria and Pertussis Immunization (7 - Td or Tdap) 01/03/2021 01/03/2011, 2003, 05/25/2000, Additional history exists Asthma Spirometry 06/25/2021 06/25/2019 Annual Preventive Exam 05/29/2022 05/29/2021, 2018 Covid-19 Immunization ( - season) 2025 Influenza Immunization (#1) 2025 Hepatitis B Immunization Completed 000, 1999, 1999 HIB Immunization Completed 05/25/2000, , 1999, Additional history exists Polio Immunization Completed 2003, 1 1999, 1999, Additional history exists Meningococcal Immunization Discontinued 01/03/2011 Varicella Immunization Completed 1, 03/25/2009, 05/25/2000 Hepatitis A Immunization Aged Out No longer eligible based on patient's age to complete this topic Procedures Procedure Name Priority Date/Time Associated Diagnosis Comments SPIROMETRY WITHOUT BRONCHODILATOR Routine 06/25/2019 6:37 PM EDT Pre-employment health screening examination from Last 3 Months or Most Recently Relevant to Health Maintenance Results * Spirometry, Complete (06/25/2019 6:37 PM EDT) FEV1 4.50 liters Comment:91% FVC 5.14 liters Comment:86% FEV1/FVC 90% % Comment:107% Madhavi ALVAREZ PFT ORDERABLES Final Result from Last 3 Months or Most Recently Relevant to Health Maintenance Insurance OPT OUT NO COPAY NB Care Teams Suction Worker Relationship Specialty Start Date End Date Yris Gordon [address] [address] PCP - General 09/18/23
--- OUTSIDE RECORDS SUMMARY | 2025-06-29 09:55 | XMS_ITS | Clinical Summary ---
Author Organization [facility] Address [address] 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 1 Each 2 5 Active cetirizine (ZYRTEC) 10 mg Oral TabletIndicatio ns:Eustachian tube dysfunction, right Take 1 Tablet by mouth daily. 30 Tablet 2 5 Active ibuprofen (ADVIL;MOTRIN) 600 mg Oral TabletIndicatio ns:Eustachian tube dysfunction, right Take 1 Tablet by mouth every 6 hours as needed for Pain. 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 025 Acute left ankle pain 01/25/2025 Immunizations Immunization Administration Dates Next Due DTaP 2003, 0,1999,1998,1999 Hepatitis B, Unspecified Formulation 02/15/2000, 1999,1999 HiB, Unspecified Formulation 05/25/2000, 02/15/2000,1999,1998 IPV 2003, 0,1999,1998 MMR 2003,08/27/2000 Varicella 01/03/2011,03/25/2009,05/25/2000 Surgical History Surgery Date Site/Laterality Comments ELBOW SURGERY 11/29/2023 - 12/29/2023 Left Medical History Medical History Date Comments Asthma Allergy Social History Tobacco Use Types Packs/Day Years Used Date Smoking Tobacco: Never Smokeless Tobacco: Never Tobacco Cessation:Counseling Given: Not Answered Alcohol Use Standard Drinks/Week Comments No 0 (1 standard drink = 0.6 oz pur e alcohol) Sexually Active Control Partners Comments Never Sex and Gender Information Value Date Recorded Sex Assigned at Not on file Legal Sex Male 9:13 PM EDT Gender Identity Not on file Sexual Orientation Not on file Last Filed Vital Signs Vital Sign Reading Time Taken Comments Blood Pressure 152/90 02/18/2025 2:05 PM EDT Pulse 97 02/18/2025 2:05 PM EDT Temperature 36.8 C (98.2 F) 02/18/2025 2:05 PM EDT Respiratory Rate 16 02/18/2025 2:05 PM EDT Oxygen Saturation 98% 02/18/2025 2:05 PM EDT Inhaled Oxygen Concentration - - Weight 123.8 kg (273 lb) 02/18/2025 2:05 PM EDT Height 185.4 cm (6' 1 ) 02/18/2025 2:05 PM EDT Body Mass Index 36.02 02/18/2025 2:05 PM EDT Plan of Treatment Health Maintenance Due Date Last Done Comments Annual Wellness Exam 2002 DTaP/TDaP/Td (6 - Tdap) 2010 05/21/20 03, 05/25/2000, 1999, Additional history exists HPV (2 - Male 2-dose series) 11/08/2013 05/08/2013 ( Declined) COVID-19 Vaccine ( season) 2025 Influenza Vaccine (#1) 2025 Hepatitis B Vaccine Completed 02/15/2000, 1999, 1999 Meningococcal B Vaccine Aged Out No l onger eligible based on patient's age to complete this topic Pneumococcal Vaccine 0-49 Aged Out No longer eligible based on patient's age to complete this topic Insurance LILLIE PPO LILLIE PPO
--- OUTSIDE RECORDS SUMMARY | 2025-06-29 09:55 | XMS_ITS | Clinical Summary ---
Author Organization [facility] Address [address] [place] [address] Care Team Providers Care Tacking Machine Operator Name Role Phone Mikel Mary M.D. Primary Care Provider [phone] Source Comments [facility] is fully rolled out with thefollowing exceptions:General Clinical Research [facility] Social History Tobacco Use Types Packs/Day Years Used Date Smoking Tobacco: Never Assessed Sex and Gender Information Value Date Recorded Sex Assigned at Not on file Legal Sex Male 5:31 AM EST Gender Identity Not on file Sexual Orientation Not on file Plan of Treatment Health Maintenance Due Date Last Done Comments MMR IMMUNIZATION (1 of 1 - S tandard series) 2000 DTAP/Tdap/Td IMMUNIZATION (1 - Tdap) 2006 VARICELLA IMMUNIZATION (1 of 2 - 13+ 2-dose series) 2012 HPV IMMUNIZATION (1 - Male 3 -dose series) 2014 HEPATITIS B IMMUNIZATION (1 of 3 - 19+ 3-dose series) 2018 AMB SEASONAL FLU VACCINE (#1) 05/31/2025 COVID-19 Vaccine (1 - 2023-2 5 season) 2025 HIB IMMUNIZATION Aged Out No longer e ligible based on patient's age to complete this topic IPV IMMUNIZATION Aged Out No longer e ligible based on patient's age to complete this topic MCV4 IMMUNIZATION Aged Out No longer eligible based on patient's age to complete this topic MENINGOCOCCAL B VACCINE Aged Out No l onger eligible based on patient's age to complete this topic PNEUMOCOCCAL IMMUNIZATION Aged Out No longer eligible based on patient's age to complete this topic Respiratory Syncytial Virus (RSV) <20mo Aged Out No longer eligible b ased on patient's age to complete this topic Insurance LILLIE JENSEN NON-TRADITIONAL Care Teams Tacking Machine Operator Relationship Specialty Start Date End Date Mikel Mary M.D. [place] [id number] [employer] [place] [id number] PCP - General 03/28/09
== END 2025-06-28 23:59 ==
LOC: LAB.DROPOF 06-29 09:46
PROVIDERS: PCP Student in an Organized Health Care Education/Training Program; Visit Provider Student in an Organized Health Care Education/Training Program
DX: L60.0 Ingrowing nail (principal)
CPT/HCPCS: 87070; 87205

== ENCOUNTER 2025-06-30 15:58 | Outpatient (CLI) | payer BC, SELFPAY ==
--- OUTSIDE RECORDS SUMMARY | 2025-07-01 09:44 | XMS_ITS | Clinical Summary ---
Author Organization [facility] Address [address] 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 1 Each 2 [...]
--- OUTSIDE RECORDS SUMMARY | 2025-07-01 09:44 | XMS_ITS | Clinical Summary ---
Author Organization [facility] Address [address] [place] [address] Phone [email or web address] Care Team Providers Care Safety Investigator Name Role Phone Yris Gordon Primary Care Provider [phone] Allergies No known active allergies Medications No [...] OPT OUT NO COPAY NB Care Teams Safety Investigator Relationship Specialty Start Date End Date Yris Gordon [address] [address] PCP - General 09/18/23
--- OUTSIDE RECORDS SUMMARY | 2025-07-01 09:44 | XMS_ITS | Clinical Summary ---
Author Organization [facility] Address [address] [place] [address] Care Team Providers Care Commercial Glazier Name Role Phone Mikel Mary M.D. Primary Care Provider [phone] Source Comments [facility] is fully rolled out with thefollowing exceptions:General Clinical Research [facility] Social History Tobacco Use Types Packs/Day Years [...] topic Insurance LILLIE JENSEN NON-TRADITIONAL Care Teams Commercial Glazier Relationship Specialty Start Date End Date Mikel Mary M.D. [place] [phone] [employer] [place] [phone] PCP - General 03/28/09
== END 2025-06-30 23:59 ==
LOC: LAB.DROPOF 07-01 09:41
PROVIDERS: PCP Nurse Practitioner; Visit Provider Nurse Practitioner
DX: L60.0 Ingrowing nail (principal)
CPT/HCPCS: 87070; 87205

== ENCOUNTER 2025-07-12 16:59 | Outpatient (CLI) | payer BC, SELFPAY ==
[2025-07-12 14:06] LABS: Hematocrit 47.1 % (42.0-52.0); Hemoglobin 15.5 g/dL (14.1-18.0); Immature Granulocytes % 0.3 %; Mean Corpuscular HGB Conc 32.9 g/dL (31.8-35.4); Mean Corpuscular Hemoglobin 26.9 pg (27.0-31.2); Mean Corpuscular Volume 81.8 fl (80-94); Nucleated Red Blood Cells % 0 %; Platelet Count 352 K/mm3 (142-424); Red Blood Count 5.76 M/mm3 (4.60-6.20); Red Cell Distribution Width-SD 39.3 fL; White Blood Count 10.1 K/mm3 (4.8-10.8)
[2025-07-12 14:24] LABS: Alanine Aminotransferase 83 U/L (12-78); Albumin Level 4.8 g/dl (3.5-5.0); Albumin/Globulin Ratio 1.5 (1.1-1.8); Alkaline Phosphatase 109 U/L (38-126); Anion Gap 18.4 mEq/L (5-15); Aspartate Amino Transferase 45 U/L (17-59); Bilirubin,Total 0.6 mg/dl (0.2-1.3); Blood Urea Nitrogen 11 mg/dl (9-20); Calcium 9.4 mg/dl (8.4-10.2); Carbon Dioxide 27 mmol/L (22.0-30.0); Chloride 97 mmol/L (98-107); Cholesterol 157 mg/dl (140-200); Creatinine,Serum 0.80 mg/dl (0.66-1.25); Estimated Glomerular Filt Rate 117 ml/min (>60); GFR (African American) 141 ML/MIN (>60); Globulin 3.2 g/dL (1.3-3.2); Glucose 76 mg/dl (74-100); HDL Cholesterol 42 mg/dl (40-60); Potassium 4.4 mmoL/L (3.5-5.1); Sodium 138 mmol/L (136-145); Total Protein,Serum 8.0 g/dl (6.3-8.2); Triglycerides 141 mg/dl (30-150)
[2025-07-12 14:50] LABS: Hemoglobin A1C 5.3 % (4.0-6.0)
[2025-07-12 15:14] LABS: 25-OH Vitamin D, Total < 12.8 ng/mL (30-100)
[2025-07-12 15:28] LABS: Thyroid Stimulating Hormone 5.86 uIU/mL (0.465-4.68)
[2025-07-12 15:47] LABS: Vitamin B12 445 pg/mL (239-931)
[2025-07-12 17:08] LABS: Ferritin 81.9 ng/ml (17.9-464)
--- OUTSIDE RECORDS SUMMARY | 2025-07-13 17:01 | XMS_ITS | Clinical Summary ---
Author Organization [facility] Address [address] [place] [address] Care Team Providers Care Beauty Culture Teacher Name Role Phone Mikel Mary MD Primary Care Provider [phone] Source Comments [facility] is fully rolled out with thefollowing exceptions:General Clinical Research [facility] Social History Tobacco Use Types Packs/Day [...] topic Insurance LILLIE JENSEN NON-TRADITIONAL Care Teams Beauty Culture Teacher Relationship Specialty Start Date End Date Mikel Mary MD [place] [address] [place] [address] PCP - General 03/28/09
--- OUTSIDE RECORDS SUMMARY | 2025-07-13 17:01 | XMS_ITS | Clinical Summary ---
Author Organization [facility] Address [address] [place] [address] Phone [email or web address] Care Team Providers Care Mental Health Program Specialist Name Role Phone Yris Gordon Primary Care Provider [phone] Allergies No known active allergies Medications No [...] OPT OUT NO COPAY NB Care Teams Mental Health Program Specialist Relationship Specialty Start Date End Date Yris Gordon [address] [address] PCP - General 09/18/23
--- OUTSIDE RECORDS SUMMARY | 2025-07-13 17:01 | XMS_ITS | Data Portability ---
Author Organization [facility] Address [address] [place] [address] Care Team Providers Care Service Dismantler Name Role Phone BRYAN HINOJOSA Orthopedic Surgeon AAMIR DONG [facility] [phone] Assessment Encounter Date Assessment Date Assessment LastModified by Organization Details LastModified Time 02/20/2024 02/20/2024 Patient is doing well even with his recent fall and can now return to work next week on 02/25/2024 without restrictions. Continue therapy now working on work hardening and conditioning which will be followed by the reentry process at work. Follow-up again in 6 weeks for final assessment, but can call to cancel if doing well at that time. [email or web address] Not available 02/20/2024 15:17:51 07/16/2024 07/16/2024 Patient returns today 7 months s/p left cubital tunnel release in-situ with recurrent symptoms shortly after resuming full duty work. He was evaluated at [facility], however, states work comp claim was denied. We discussed further treatment plan at length. I explained that with nerve surgery it can take several months to a year to get full benefit. He will resume comprehensive OT program and will request temporary accomodations be made. Short course Rx prednisone dosepak provided. He may use the hand for light activity as tolerated. He will return to office for recheck with Dr. Hinojosa in 4 weeks. Patient expressed understanding in this regard and was in agreement with this plan. [email or web address] Not available 07/21/2024 12:30:24 08/13/2024 08/13/2024 Patient improving following reaggravation with return to his same work process that initiated his symptoms in the first place. Continue current conservative treatment with ongoing therapy progression. Mngk-oos-pysuyuj medication as needed. Continue work restrictions to allow for further therapeutic recovery. Follow-up again in 4 weeks for repeat assessment. Plans to allow for return to work without restrictions at that time if doing well. Ultimately should symptoms persist/progress we would obtain a new EMG/NCV study. [email or web address] Not available 08/13/2024 15:21:24 09/10/2024 09/10/2024 Patient will continue working with therapy at this time with transition to home exercise program when appropriate. Continue ongoing work restrictions to focus on therapeutic recovery for the next 4 weeks with planned return to work without restrictions on 10/05/24. Follow-up in 8 weeks for repeat assessment and to ensure no setbacks with return to work. [email or web address] Not available 09/10/2024 15:52:19 11/05/2024 11/05/2024 Patient doing well at this time with no setbacks with return to work and can continue working without restrictions. Discussed home therapy exercises and intermittent use of pmmp-rvk-souybmk medication if needed for any mild intermittent recurrent symptoms. Patient will follow up in clinic on an as-needed basis should additional questions or concerns arise. [email or web address] Not available 11/05/2024 14:58:34 Plan of Treatment Reminders Order Date Submit Date Provider Last Modified By Organization Details Last Modified Time Details Appointments None recorded. Lab None recorded. Referral None recorded. Procedures None recorded. Surgeries None recorded. Imaging None recorded. Medication Orders prednisone 5 mg tablets in a dose pack 2023 024 [facility] 532, [address], [address], 14:41:50 Patient TargetsNo targets recorded. Patient InstructionsNo instructions recorded. Reason for Referral None Reported. Problems No Known Problems Procedures Surgical History Date Name Laterality Status Provider Name and Address Organization Details Recorded Time 02/19/20 24 OT Therapeutic Exercise completed ALEXANDR TRUJILLO, OTR/L, CHT [address] [place], [address], [facility] 02/19/2024 15:43:23 02/14/20 24 OT Therapeutic Exercise completed ALEXANDR TRUJILLO, OTR/L, CHT [address] [place], [address], [facility] 02/14/2024 12:30:13 02/11/20 24 OT Therapeutic Exercise completed PASCUAL DIGGS JR, OTR/L, CHT [address] [place], [address], [facility] 02/11/2024 15:00:00 02/07/20 24 OT Therapeutic Exercise completed ALEXANDR TRUJILLO, OTR/L, CHT [address] [place], [address], [facility] 02/07/2024 09:06:32 02/03/20 24 OT Therapeutic Exercise completed ALEXANDR TRUJILLO, OTR/L, CHT [address] [place], [address], [facility] 02/03/2024 09:52:51 02/03/20 24 PT Hot/Cold Pack completed ALEXANDR TRUJILLO, OTR/L, CHT [address] [place], [address], [facility] 02/03/2024 09:52:51 01/31/20 24 OT Therapeutic Exercise completed ALEXANDR TRUJILLO, OTR/L, CHT [address] [place], [address], [facility] 01/31/2024 14:28:45 01/31/20 24 PT Hot/Cold Pack completed ALEXANDR TRUJILLO, OTR/L, CHT [address] [place], [address], [facility] 01/31/2024 13:17:48 01/28/20 24 OT Therapeutic Exercise completed ALEXANDR TRUJILLO, OTR/L, CHT [address] [place], [address], [facility] 01/28/2024 14:23:28 01/28/20 24 PT Hot/Cold Pack completed ALEXANDR TRUJILLO, OTR/L, CHT [address] [place], [address], [facility] 01/28/2024 09:53:04 01/21/20 24 OT Therapeutic Exercise completed ALEXANDR TRUJILLO, OTR/L, CHT [address] [place], [address], [facility] 01/21/2024 14:20:39 01/21/20 24 PT Hot/Cold Pack completed ALEXANDR TRUJILLO, OTR/L, CHT [address] [place], [address], [facility] 01/21/2024 12:27:17 01/15/20 24 OT Therapeutic Exercise completed ALEXANDR TRUJILLO, OTR/L, CHT [address] [place], [address], [facility] 01/15/2024 15:51:18 01/15/20 24 PT Hot/Cold Pack completed ALEXANDR TRUJILLO, OTR/L, CHT [address] [place], [address], [facility] 01/15/2024 09:16:19 01/08/20 24 OT Therapeutic Exercise completed ALEXANDR TRUJILLO, OTR/L, CHT [address] [place], [address], [facility] 01/08/2024 14:28:12 01/08/20 24 OT Manual Therapy completed ALEXANDR TRUJILLO, OTR/L, CHT [address] [place], [address], [facility] 01/08/2024 08:04:41 01/08/20 24 PT Hot/Cold Pack completed ALEXANDR TRUJILLO, OTR/L, CHT [address] [place], [address], [facility] 01/08/2024 08:04:42 12/24/19 24 OT Therapeutic Exercise completed ALEXANDR TRUJILLO, OTR/L, CHT [address] [place], [address], [facility] 12/24/2023 14:20:52 12/24/19 24 OT Manual Therapy completed ALEXANDR TRUJILLO, OTR/L, CHT [address] [place], [address], [facility] 12/24/2023 14:20:56 12/24/19 24 PT Hot/Cold Pack completed ALEXANDR TRUJILLO OTR/L, CHT [address] [place], [address], [facility] 12/24/2023 14:20:58 12/12/19 24 OT Evaluation - Moderate complexity completed ALEXANDR TRUJILLO OTR/L, CHT [address] [place], [address], [facility] 12/12/2023 07:59:20 12/12/19 24 OT Therapeutic Exercise completed ALEXANDR TRUJILLO OTR/L, CHT [address] [place], [address], [facility] 12/12/2023 08:54:29 12/09/19 24 Cubital Tunnel Release [place] [address] [place] [address], [phone] [place] [address] 12/09/2023 09:42:50 11/28/19 24 Electromyography (EMG) with Nerve Conduction Study (NCV) completed AAMIR DONG MD [address] [place] [address], [address] [place] [address] 11/28/2023 14:37:06 11/28/19 24 Ultrasound evaluation, Nerve(s) completed AAMIR DONG MD [address] [place] [address], [address] [place] [address] 11/28/2023 14:38:11 Imaging Results None recorded. Procedure Notes None recorded. Medical Equipment None Reported. Allergies No known drug allergies Medications Name Sig Start Date Stop Date Status Note LastModified by Organization Details LastModified Time tramadol 50 mg tablet TAKE 1 TABL PO Q 6 HRS PRN FOR SEVERE POST SURGICAL PAIN 12/23 completed Not Available Not Available Not Available meloxicam 7.5 mg tablet TAKE 1 TABLE PO QD WITH FOOD REGARDLES S OF PAIN LEVEL FOR 1 WEEK. THEN TAKE 1 TABLET PO QD ONLY PRN FOR PAIN RELIEF EDMUND Lundberg 12/23 completed Not Available Not Available Not Available Neurontin 100 mg capsule TAKE 1 CAPSULE PO QHS FOR 1 WEEK 12/23 completed Not Available Not Available Not Available prednisone 5 mg tablets in a dose pack Take 1 dose pk by oral route as directed. 08/13 completed Not Available Not Available Not Available Vitals Date Recorded Body height Body mass index (BMI) Body weight Provider Name and Address Organization Details Last Updated DateTime 11/05/2024 182.88 cm 32.5 kg/m2 801682.17 g Tammie [facility] 11/05/2024 14:50:16 Date Recorded Body height Body mass index (BMI) Body weight Provider Name and Address Organization Details Last Updated DateTime 02/20/2024 182.88 cm 32.5 kg/m2 091191.17 g [facility] 02/20/2024 14:51:55 Date Recorded Body height Body mass index (BMI) Body weight Pain severity - 0-10 verbal numeric rating [Score] - Reported Provider Name and Address Organization Details Last Updated DateTime 07/16/2024 182.88 cm 32.5 kg/m2 076594.17 g 3 [facility] 07/16/2024 14:56:32 Date Recorded Body height Body mass index (BMI) Body weight Provider Name and Address Organization Details Last Updated DateTime 08/13/2024 182.88 cm 32.5 kg/m2 023823.17 g [facility] 08/13/2024 14:41:40 Date Recorded Body height Body mass index (BMI) Body weight Pain severity - 0-10 verbal numeric rating [Score] - Reported Provider Name and Address Organization Details Last Updated DateTime 09/10/2024 182.88 cm 32.5 kg/m2 635313.17 g 0 [facility] 09/10/2024 15:10:04 Social History None recorded. Functional Status None recorded. Mental Status None recorded. Family History Nothing Reported. Medical History Condition Response Other N Anxiety/Depression N Gout N Thyroid Disease N Kidney Stones N Hernia N COPD N Glaucoma N Pneumonia N Anesthesia Complications N Arthritis N Blood Clot N Cancer N Stroke N Blood Thinners N Alcohol Overuse/Alcohol Abuse N High Cholesterol N Liver Disease N Kidney Disease N Allergies/Hayfever N Heart Conditions N Migraines N Thyroid Problems N Skin Problems N Immune System Disorder N Heart Attack ([place]) N Mental Illness N Neurological Problems N Diabetes N Rheumatic Fever N Bleeding Disorder N Seizures/Epilepsy N Tuberculosis N Genetic Disorder N AIDS/HIV N Asthma N Sleep Apnea N Included as Review of Systems N Hypertension N Osteoporosis N Past Encounters Encounter ID Performer Location Encounter Start Date Encounter Closed Date Diagnosis/Indication Diagnosis SNOMED-CT Code Diagnosis ICD10 Code Diagnosis IMO Codes Diagnosis Note [id number] BRYAN HINOJOSA MD [facility] [address] [place] [address] 10/22/2023 14:39:00 10/22/2023 16:18:57 Ulnar neuropathy of left arm 5283820201 17402 G56.22 [id number] BRYAN HINOJOSA MD [facility] [address] [place] [address] 11/28/2023 15:19:24 12/03/2023 15:53:27 Ulnar neuropathy of left arm 8345187874 78717 G56.22 EMG/NCV (11/28/2023 ) demonstrat ed left ulnar neuropathy at the elbow. No evidence of median neuropathy or cervical radiculopa thy. Supplement al ultrasound revealed diffuse ulnar nerve enlargemen t, hypoechoge nicity, and fascicular enlargemen t just proximal to the cubital tunnel before entering the ulnar groove. The nerve returns normal size and echogenici ty above the elbow and distal to the two heads of the FCU. Ultrasonog adri appearance consistent with left compressiv e ulnar neuropathy at the cubital tunnel. [id number] AAMIR DONG MD [facility] [address] [place] [address] 11/28/2023 13:12:17 12/03/2023 16:29:50 Ulnar nerve 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 709577847 G56.22 Nerve conduction study, EMG, and ultrasound , and clinical symptoms are consistent with left cubital tunnel syndrome. Follow-up with Dr. Hinojosa for ongoing management [id number] ALEXANDR TRUJILLO, OTR/L, CHT PHYSICAL THERAPY / HAND THERAPY [facility] [address] [place] [id number] 12/12/2023 08:14:02 12/13/2023 17:50:11 Ulnar nerve 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 830543904 G56.22 In-Situ Decompress ion [id number] BRYAN HINOJOSA MD SURGERY SCHEDULE [address] [place] [address] 12/09/2023 07:31:39 12/09/2023 07:32:50 [id number] RAF LOPEZ PA-C [facility] [address] [place] [address] 12/24/2023 13:21:58 12/24/2023 15:22:33 Postoperative care [id number] Z48.89 s/p left cubital tunnel release in-situ (DOS: 12/09/23) [id number] ALEXANDR TRUJILLO OTR/L, CHT PHYSICAL THERAPY / [facility] [address] [place] [address] 12/24/2023 13:21:35 12/25/2023 04:35:05 Ulnar nerve 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 302243833 G56.22 In-Situ Decompress ion [id number] ALEXANDR TRUJILLO OTR/L, CHT PHYSICAL THERAPY / [facility] [address] [place] [address] 01/08/2024 13:17:37 01/09/2024 04:55:22 Ulnar nerve 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 647186189 G56.22 In-Situ Decompress ion [id number] ALEXANDR TRUJILLO OTR/L, CHT PHYSICAL THERAPY / [facility] [address] [place] [address] 01/15/2024 14:23:26 01/16/2024 04:25:14 Ulnar nerve 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 864813315 G56.22 In-Situ Decompress ion [id number] BRYAN HINOJOSA MD [facility] [address] [place] [address] 01/21/2024 12:54:58 01/21/2024 14:39:10 Postoperative care 884101016 Z48.89 6 weeks s/p left cubital tunnel release in-situ (DOS: 12/09/23) [id number] LEILANI JAIMES/L, CHT PHYSICAL THERAPY / [facility] [address] [place] [address] 01/21/2024 12:54:28 01/22/2024 04:43:59 Ulnar nerve 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 033115242 G56.22 In-Situ Decompress ion [id number] LEILANI JAIMES/L, CHT PHYSICAL THERAPY / [facility] [address] [place] [address] 01/28/2024 12:57:01 01/29/2024 04:27:00 Ulnar nerve 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 263495124 G56.22 In-Situ Decompress ion [id number] LEILANI JAIMES/Shaan, CHT PHYSICAL THERAPY / 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 [address] [place] [address] 02/11/2024 14:46:02 02/12/2024 05:00:53 Ulnar nerve 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 071904022 G56.22 In-Situ Decompress ion [id number] ALEXANDR TRUJILLO OTR/L, CHT PHYSICAL THERAPY / [facility] [address] [address] 02/14/2024 14:49:55 02/15/2024 04:51:55 Ulnar nerve 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 422179105 G56.22 In-Situ Decompress ion [id number] BRYAN HINOJOSA MD [facility] [address] [address] 02/20/2024 14:03:21 02/20/2024 15:42:34 Postoperative care [id number] Z48.89 10 weeks s/p left cubital tunnel release in-situ (DOS: 12/09/23) [id number] LEILANI JAIMES/L, CHT PHYSICAL THERAPY / [facility] [address] [place] [address] 02/19/2024 14:45:11 02/20/2024 05:17:17 Ulnar nerve 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 093863041 G56.22 In-Situ Decompress ion [id number] RAF LOPEZ PA-C [facility] [address] [address] 07/16/2024 14:29:55 07/16/2024 15:33:38 Postoperative care 747080141 Z48.89 Previously s/p left cubital tunnel release in-situ (DOS: 12/09/23) [id number] BRYAN HINOJOSA MD [facility] [address] [address] 08/13/2024 14:36:08 08/13/2024 15:20:06 Postoperative care 542704184 Z48.89 Previously s/p left cubital tunnel release in-situ (DOS: 12/09/23) Ulnar neur opathy of left arm 1766222454 89232 G56.22 EMG/NCV (11/28/2023 ) demonstrat ed left ulnar neuropathy at the elbow. No evidence of median neuropathy or cervical radiculopa thy. Supplement al ultrasound revealed diffuse ulnar nerve enlargemen t, hypoechoge nicity, and fascicular enlargemen t just proximal to the cubital tunnel before entering the ulnar groove. The nerve returns normal size and echogenici ty above the elbow and distal to the two heads of the FCU. Ultrasonog adri appearance consistent with left compressiv e ulnar neuropathy at the cubital tunnel. [id number] BRYAN HINOJOSA MD [facility] [address] [address] 09/10/2024 14:36:28 09/10/2024 16:17:51 Postoperative care [id number] Z48.89 Previously s/p left cubital tunnel release in-situ (DOS: 12/09/23) Ulnar neur opathy of left arm 1750431379 51239 G56.22 EMG/NCV (11/28/2023 ) demonstrat ed left ulnar neuropathy at the elbow. No evidence of median neuropathy or cervical radiculopa thy. Supplement al ultrasound revealed diffuse ulnar nerve enlargemen t, hypoechoge nicity, and fascicular enlargemen t just proximal to the cubital tunnel before entering the ulnar groove. The nerve returns normal size and echogenici ty above the elbow and distal to the two heads of the FCU. Ultrasonog adri appearance consistent with left compressiv e ulnar neuropathy at the cubital tunnel. [id number] BRYAN HINOJOSA MD [facility] [address] [address] 11/05/2024 14:47:06 11/05/2024 14:51:45 Postoperative care [id number] Z48.89 Previously s/p left cubital tunnel release in-situ (DOS: 12/09/23) Ulnar neur opathy of left arm 2302207499 29316 G56.22 EMG/NCV (11/28/2023 ) demonstrat ed left ulnar neuropathy at the elbow. No evidence of median neuropathy or cervical radiculopa thy. Supplement al ultrasound revealed diffuse ulnar nerve enlargemen t, hypoechoge nicity, and fascicular enlargemen t just proximal to the cubital tunnel before entering the ulnar groove. The nerve returns normal size and echogenici ty above the elbow and distal to the two heads of the FCU. Ultrasonog adri appearance consistent with left compressiv e ulnar neuropathy at the cubital tunnel. Health Concerns Section Related Observation LastModified by Organization Detai ls LastModified Time None Recorded Concern Status LastModified by Organization Details LastModified Time None Recorded Advance Directives Directive None Recorded Payers Insurance Date Sequence Insurance Name Policy Number Policy Corey Covered Member ID Corey Member ID Guarantor Name 11/10/2024 1 [place] [id number] A Duong Copeland Nish [id number] Duong Nish 12/02/2023 [facility] Tmmk Janelle emerson Nish Notes Date Note Type Note Provider Name and Address Organization Details Recorded Time 4 text/html ROS as noted in the HPI Patient doing well overall, but sustained a fall on 02/15/2024 with temporary increase in medial elbow pain and mild recurrent numbness and tingling in the ulnar two digits. However, since that time symptoms have gradually improved and are now only slight and intermittent. POST OP GLOBAL VISITDATE OF SURGERY: 12/09/2023TIME POST SURGERY:10.5 weeksSURGERY:left cubital tunnel release in-situ INTERVAL HISTORY: PREOP SYMPTOMSBETTER PAIN LEVEL (VAS)2/10 OVERALL ASSESSMENTIMPROVING NEW SYMPTOMS OR QUESTIONS: States that he fell maybe 6 days ago which caused some n/t, which has improved since. OTHER RECENT SURGERIES: N/a EMPLOYMENT STATUS: Off work due to surgery BRYAN HINOJOSA MD [address] [place] [address], [address], [facility] 02/20/2024 15:17:57 4 text/html ROS as noted in the HPI Duong is a 24 yo [employer]HD [employer] employee, established patient, who returns today with recurrent left cubital tunnel symptoms. He denies injury. He reports onset of recurrent symptoms shortly after resuming full duty work about 3 months ago. He was evaluated at [facility], however, states work comp claim was denied. Hand dominance: RightLocation: Left Hand Pain level: 3 /10 increases at work Recent Surgery: YesProcedure: left cubital tunnel release in-situDate of surgery: 12/09/2023Surgeon(If Known): Dr. Hinojosa In office procedure? No Previous upper extremity surgery? YesHave you or an immediate family member ever seen our hand surgeons before? 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 Yes Is this injury associated with a Workers Compensation claim? Yes RAF LOPEZ PA-C [address] [place], [address], [facility] 07/21/2024 12:31:01 4 text/html ROS as noted in the HPI FollowingPatient recently seen by my PA Raf Lopez for recurrent left elbow and hand symptoms return to work back to the same job process that initiated his symptoms to begin with. Started on a course of conservative treatment with improvement in symptoms. Patient returns to the clinic today for a follow-up. Reports he is doing better with improved symptoms but he is not at 100% yet. Reports prednisone dosepak was helpful. Reports resolution of left hand numbness and tingling. Reports some intermittent burning pain around the medial elbow site, but this is becoming less frequent. Therapy has been helpful. Hand dominance: RightLocation: Left Hand Pain level: 1-2 /10 Recent Surgery: YesProcedure: left cubital tunnel release in-situDate of surgery: 12/09/2023Surgeon(If Known): Dr. Hinojosa In office procedure? No Previous upper extremity surgery? YesHave you or an immediate family member ever seen our hand surgeons before? 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 No STDIs this injury associated with a Workers Compensation claim? No Mr. Mock is here for recheck of lt hand. He says he feels better but not 100% yet. BRYAN HINOJOSA MD [address] [place], [address], [facility] 08/13/2024 15:21:33 4 text/html ROS as noted in the HPI Patient returns to the clinic today for a follow-up. Reports he is doing well with improved symptoms. Denies any residual numbness/tingling. Still with some sensitivity over the medial elbow which is gradually improving. Therapy has been helpful. Hand dominance: RightLocation: Left Elbow Pain level: 0 /10 Recent Surgery: YesProcedure: left cubital tunnel release in-situDate of surgery: 12/09/2023Surgeon(If Known): Dr. Hinojosa In office procedure? No Previous upper extremity surgery? YesHave you or an immediate family member ever seen our hand surgeons before? 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 NoIs this injury associated with a Workers Compensation claim? No Mr. Mock is here for recheck of lt elbow. Some sensitivity over incision. No n/tHe is still scheduled with therapy 3x per wk. BRYAN HINOJOSA MD [address] [place], [address], [facility] 09/10/2024 15:52:32 5 text/html ROS as noted in the HPI Patient returns to the clinic today for a follow-up. Reports he is doing well with continued resolution of symptoms. Denies any residual numbness/tingling. Denies any setbacks with return to work. However, they have not placed him back on the work line that caused the recurrent symptoms. Hand dominance: RightLocation: Left Elbow Pain level: 0 /10 Recent Surgery: YesProcedure: left cubital tunnel release in-situDate of surgery: 12/09/2023Surgeon(If Known): Dr. Hinojosa In office procedure? No Previous upper extremity surgery? YesHave you or an immediate family member ever seen our hand surgeons before? 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 Yes on light dutyIs this injury associated with a Workers Compensation claim? No Mr. Mock is here for recheck of lt elbow. Overall doing well since returning back to work BRYAN HINOJOSA MD [address] [place], [address], [facility] 11/05/2024 16:59:47
--- OUTSIDE RECORDS SUMMARY | 2025-07-13 17:01 | XMS_ITS | Clinical Summary ---
Author Organization [facility] Address [address] 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 1 Each 2 [...]
== END 2025-07-12 23:59 | disposition home or self-care (01) ==
LOC: LAB.DROPOF 07-13 17:00
PROVIDERS: PCP Nurse Practitioner Family; Visit Provider Nurse Practitioner Family
DX: M62.81 Muscle weakness (generalized) (principal); I10 Essential (primary) hypertension; R53.83 Other fatigue; Z13.1 Encounter for screening for diabetes mellitus
CPT/HCPCS: 80053; 80061; 82306; 82607; 82627; 82728; 83036; 84402; 84403; 84443; 85025